=== PATIENT | female | born 1980 | race Caucasian/White ===

== ENCOUNTER 2021-08-18 18:47 | Emergency (ER) | payer BC ==
[~2021-08-18] VITALS: Ht 175.3 cm; Wt 90.7 kg
--- NOTE | 2021-08-18 18:59 | NUR ---
, from home, R ankle swelling and pain s/p missed a step and fall denies hitting head,-loc fentanyl 100 mcg and zofran 4mg given,air splint
--- NOTE | 2021-08-18 19:00 | NUR ---
WAIVER SIGNED AND PLACE IN PT'S CHART
--- NOTE | 2021-08-18 19:12 | NUR ---
X RAY AT BEDSIDE
[2021-08-18] MEDS ORDERED: TRAM50TA2 PO (20:04)
[2021-08-18] MEDS ORDERED: IBUP-1955 PO (20:04)
--- NOTE | 2021-08-18 20:16 | NUR ---
Patient discharged to home in stable condition. Written and verbal after care instructions given. Patient verbalizes understanding of instruction. IV removed and PT assisted out of ER via wheelchair.
[2021-08-18 20:17] VITALS: BP 112/71
== END 2021-08-18 20:17 | disposition home or self-care (01) ==
LOC: ER 18:49
DX: S93.401A Sprain of unspecified ligament of right ankle, initial encounter (principal); W10.9XXA Fall (on) (from) unspecified stairs and steps, initial encounter; Y93.H3 Activity, building and construction; Y92.89 Other specified places as the place of occurrence of the external cause; Y99.8 Other external cause status
CPT/HCPCS: 73590-TC; 73610-TC